=== PATIENT | female | born 1985 | race Two or more races ===

== ENCOUNTER 2019-11-08 18:23 | Emergency (ER) | payer SELFPAY | END 2019-11-08 18:50 | disposition home or self-care (01) | LOC: ERS 18:23 | DX: O99.89 Other specified diseases and conditions complicating pregnancy, childbirth and the puerperium (principal); M25.521 Pain in right elbow; Z3A.12 12 weeks gestation of pregnancy | CPT/HCPCS: 99283 ==

== ENCOUNTER 2020-05-18 22:04 | Day surgery (SDC) | payer OTHER ==
[2020-05-18 22:46] VITALS: BMI 40.6
[2020-05-18 23:17] LABS: Amnisure Test No Membranes Rupture (No Rupture)
[2020-05-18 23:19] LABS: Amnisure Internal Control QC ACCEPTABLE (ACCEPTABLE)
[2020-05-19] MEDS ORDERED: hydrALAZINE 20 MG/ML VIAL SLOW IVP PRN (00:14)
--- NOTE | 2020-05-19 01:05 | HP ---
PRIMARY MEDIA PRODUCTION SUPPORT MANAGER: Dr. Nieves. CHIEF COMPLAINT: Leakage of fluid. HISTORY OF PRESENT ILLNESS: The patient is a 34-year-old, G4, P3, female with an intrauterine at 40 weeks, presenting with an isolated event of leakage of fluid onto her underwear that she reports made a spot of moisture. The patient denies any persistent leaking. Denies any other change in discharge or vaginal bleeding. Denies urinary urgency or frequency. She denies fever, cough, headache, chest pain, shortness of breath, nausea, vomiting, diarrhea, constipation, hip problems, knee problems, or muscle weakness. She denies any new rashes. PAST MEDICAL HISTORY: Migraines. PAST SURGICAL HISTORY: She has had a cholecystectomy, angiogram, and a prior . ALLERGIES: NO KNOWN DRUG ALLERGIES. MEDICATIONS: vitamins. SOCIAL HISTORY: Denies drug, alcohol, or tobacco use. REVIEW OF SYSTEMS: Per HPI. PHYSICAL EXAMINATION: VITAL SIGNS: Blood pressure 109/63, heart rate of 82, respiratory rate of 16. GENERAL: She appears to be in no acute distress. She is alert, oriented, cooperative, and pleasant to interact with. HEAD: Normocephalic, atraumatic. LUNGS: Clear to auscultation bilaterally. HEART: Has a regular rate and rhythm. ABDOMEN: Gravid and soft. : Deferred. heart tracing shows the fetus with a baseline in the 120s with moderate long-term variability, positive 15 x 15 accelerations, no decelerations. Tocometer showing some isolated contractions. LABORATORY STUDIES: AmniSure test is negative. ASSESSMENT AND PLAN: The patient is a 34-year-old multiparous female with an intrauterine at 40 weeks, presenting with some isolated staining of her undergarments. The patient has declined exam for speculum exam to look for AmniSure is negative. Fetus has a category 1 tracing. The patient has been given reassurance for discharge home. She has an appointment on to follow up with Dr. Nieves that we have encouraged to keep. Job ID: [id number]
[2020-05-19] MEDS ORDERED: FLU VACC QS2020-21(6MOS UP)/PF 60 MCG/0.5 ML SYRINGE IM ONE (09:00)
== END 2020-05-19 00:09 | disposition home health service (06) ==
LOC: L&D/OP 22:04
PROVIDERS: ATTEND Obstetrics & Gynecology
DX: O99.891 Other specified diseases and conditions complicating pregnancy (principal); N89.8 Other specified noninflammatory disorders of vagina; O48.0 Post-term pregnancy; Z3A.40 40 weeks gestation of pregnancy
CPT/HCPCS: 84112; 99283

== ENCOUNTER 2020-05-23 09:43 | Inpatient (IN) | payer OTHER ==
[~2020-05-23 09:43] MED LIST: Bupivacaine HCl 0.25%/Epi 0.0005/PF 10 ML VIAL FS ONE
[2020-05-23 10:04] VITALS: BMI 39.1
[2020-05-23] MEDS ORDERED: hydrALAZINE 20 MG/ML VIAL SLOW IVP PRN ×3 (10:40→22:02)
--- NOTE | 2020-05-23 10:45 | PDOC.FPROB ---
FMR OB H&P: HPI - History of Present Illness Chief Complaint: ctx Indentification: 34yo @ 40.5 presents for ctx History of Present Illness: 34yo @ 40.5 presents for ctx. Patient has had previous c/s for Failure to progress with first , 2 successful VBACs. Ctx started approx 0600, have spaced out from q2min to about q4 min. Moderate intensity. uncomplicated thus far. Patient denies LOF, VB, VD. Endorses good movement. Denies fever/chills, n/v, ROLDAN, vision changes, edema, or RUQ pain. Primary Care Physician: Ezequiel FMR OB H&P: Current - Care : 4 Para: [id number] Gestational age: 40.5 Due date: 05/18/20 - OB Labs Blood type: A RH: positive Antibody Screen: negative HIV: negative RPR: negative HepBsAg: negative Rubella: immune Gonorrhea: negative Chlamydia: negative 1 hour gtt: 135 GBS: negative H&H: 12.0 FMR OB H&P: History - Past Medical History PMH: Denies - OB History OB History: pLTCS with first for failure to progress, no complications x2, most recent with shoulder dystocia Denies GDM or gHTN in any - [employer] History [employer] History: Denies - Surgical History Sx History: c/s x1 [place] - Social History Social History: Denies tob, illicits, etOH - Family History Family History: Denies FMR OB H&P: Medications - Current Home Medications: Medication Instructions Recorded Confirmed Type Pnv No.95/Ferrous Fum/Folic AC 1 tab PO DAILY 05/18/20 05/23/20 History [ Tablet] Allergies/Adverse Reactions: Allergies Allergy/AdvReac Type Severity Reaction Status Date / Time No Known Allergies Allergy Verified 05/23/20 09:56 FMR OB H&P: ROS - Review of Systems General: denies: fever/chills, weight/appetite/sleep changes, night sweats Eyes: denies: vision changes, double vision, scotomas ENT: denies: nasal congestion, rhinorrhea, trouble with swallowing Cardiovascular: denies: palpitation Respiratory: denies: cough, congestion, shortness of breath Gastrointestinal: denies: abdominal pain, nausea, vomiting, diarrhea, constipation Genitourinary (Female): reports: contractions. denies: dysuria, vaginal discharge, vaginal bleeding Musculoskeletal: denies: pain, stiffness Neurologic: denies: numbness Integumentary: denies: rash Psychological: denies: depression, anxiety FMR OB H&P: Vital Signs - Maternal Vital signs: Vital Signs - First Documented Temp Pulse Resp BP 98.6 F 90 18 112/61 05/23/20 09:55 05/23/20 09:55 05/23/20 09:55 05/23/20 09:55 - Heart Tones Baseline: 140 Variability: moderate Acceleration: present Deceleration: variable (intermittent) Category: category 2 [place] contractions every: 4-5min FMR OB H&P: Physical Exam - Physical Exam General: NAD, awake, alert and oriented HEENT: PERRLA, EOMI, MMM, conjunctiva clear Neck: supple, trachea midline Heart: RRR, normal S1/S2, no murmurs/rubs/gallops, no edema General: CTAB, no respiratory distress, good air movement, no rales/rhonchi, no wheezing Abdomen: soft, gravid, non-tender, bowel sound present Musculoskeletal: FROM in all four extremities Neurological: no focal deficit Psychiatric: intact recent and remote memory, good judgement and insight, normal mood and affect - Pelvic Exam SVE: 1.5/50/-3 FMR OB H&P: A/P - Problem List (1) Term Current Visit: Yes Status: Acute Code(s): Z34.90 - ENCNTR FOR SUPRVSN OF NORMAL , UNSP, UNSP TRIMESTER Disposition: 34yo @ 40.5 presents for ctx. #Labor r/o - Term, SIUP, 40.5 - previous c/s in first for failure to progress, 2 successful VBACs since, most recent with should dystocia - SVE 1.5/50/-3 - similar to check in clinic this week - Ctx started 0600, have spaced out per patient - Cat 2 FHT - Accels, intermittent variables, moderate variability - Will monitor for 2 hours, oral hydration, recheck SVE - Sono for KEVIN - patient would prefer to spontaneously go into labor and not be induced if possible. Has post-dates induction on 05/31 PCP: Ezequiel Dispo: Sono for KEVIN. Monitor FHT. Recheck SVE in 2 hours to determine if in labor or indication for induction. Discussion: Date/Time: 05/23/20 1041 This H&P was discussed with Dr. Massey who agrees with the above documentation and plan. Addendum - Attending - Attending Attestation Date/Time: 05/23/20 1226 I personally evaluated the patient and discussed the management with Dr. Wiley. I agree with the History, Examination, Assessment and Plan documented above. Dr. Nieves unavailable, will be managed by [facility].
[2020-05-23] MEDS ORDERED: Diphenoxylate HCl/Atropine Tablet PO PRN ×2 (11:21)
[2020-05-23] MEDS ORDERED: Carboprost 250 MCG/ML AMP IM PRN (11:21)
[2020-05-23] MEDS ORDERED: Butorphanol Tartrate 1 MG/ML VIAL SLOW IVP PRN (11:21)
[2020-05-23] MEDS ORDERED: Ibuprofen 800 MG TAB PO PRN (11:21)
[2020-05-23] MEDS ORDERED: Ondansetron PF 4 MG/2 ML Vial IVP PRN ×2 (11:21→22:02)
[2020-05-23] MEDS ORDERED: Acetaminophen 500 MG TAB PO PRN (11:21)
[2020-05-23] MEDS ORDERED: Methylergonovine 0.2 MG/ML VIAL IM PRN ×2 (11:21→22:02)
[2020-05-23] MEDS ORDERED: Misoprostol 200 MCG TAB PR PRN (11:21)
[2020-05-23] MEDS ORDERED: Lidocaine 1% (PF) 30 ML VIAL SC PRN (11:21)
[2020-05-23] MEDS ORDERED: Promethazine HCl 25 MG/ML VIAL IM PRN ×2 (11:21→22:02)
--- NOTE | 2020-05-23 11:25 | PDOC.BPN ---
- Brief Progress Note Encounter Date: 05/23/20 Encounter Time: 11:23 US - KEVIN 2.2 FHT with resolution of decels. Ctx q2-3min. A/P: 34yo @ 40.5 presents for ctx. #Oligo in setting of term - Term, SIUP, 40.5 - previous c/s in first for failure to progress, 2 successful VBACs since, most recent with should dystocia - SVE 1.5/50/-3 at admission- similar to check in clinic this week - Ctx started 0600 - Cat 1 FHT - Accels, intermittent variables resolved, moderate variability. Ctx q2-3min - Oligo - KEVIN 2.2 PCP: Ezequiel Dispo: Oligo. Will admit for labor management and induction. Patient voiced understanding and agreement. PCP notified.
[2020-05-23] MEDS ORDERED: Lactated Ringer's 1,000 ML IV SCH (11:30)
[2020-05-23] MEDS ORDERED: NS w/ Oxytocin 30 units 500 ML IVPB PRN (12:19)
--- NOTE | 2020-05-23 13:31 | PDOC.LDPN ---
Labor & Delivery Progress Note - Subjective Subjective: comfortable, painful contractions, no concerns - Objective Vital signs reviewed and normal: yes General: NAD, resting, breathing through contractions Uterine fundus: non tender SVE: /-2 FHT: category 1, variability present [place] contractions every: q2-3min - Assessment (1) Term Code(s): Z34.90 - ENCNTR FOR SUPRVSN OF NORMAL , UNSP, UNSP TRIMESTER Current Visit: Yes Status: Acute Plan: continue plan of care -: 34yo @ 40.5 presents for ctx admitted for oligo and labor #Oligo in setting of term - Term, SIUP, 40.5wk - previous c/s in first for failure to progress, 2 successful VBACs since, most recent with should dystocia per patient - Oligo - KEVIN 2.2 @ admission - SVE 1.5/50/-3 at admission - SVE /-2 @ 1330 - Cat 1 FHT - Accels, moderate variability. Ctx q2-3min - Patient would prefer minimal interventions if possible - GBS negative - Desires epidural PCP: Ezequiel Dispo: Continue expectant management. Desires epidural. Monitor FHT. Offered AROM and patient declined at this time. Will recheck in 4 hours. Regular contractions.
--- NOTE | 2020-05-23 13:32 | ULT ---
LIMITED OBSTETRICAL ULTRASOUND: Date: 05/23/2020 INDICATION: History is to evaluate KEVIN with variable decels of heart tones. FINDINGS: There is a single, live intrauterine gestation in vertex presentation. Placenta is anterior in locati on. Cardiac activity is noted at 126 beats/minute. KEVIN is 2.0. Clinical age is 40 weeks and 5 days. E stimated due date is 05/18/2020. IMPRESSION: 1. Single, live, intrauterine gestation. 2. Oligohydramnios. POS: BH
[2020-05-23 13:40] LABS: Hemoglobin 12.5 g/dL (12.0-16.0); Mean Corpuscular HGB CONC 33.1 g/dL (32.0-36.0); Mean Corpuscular Hemoglobin 28.5 pg (27.0-31.0); Mean Corpuscular Volume 86.3 fL (78.0-98.0); Mean Platelet Volume 9.5 fL (7.4-10.4); Platelet Count 198 thou/uL (130-400); Red Blood Cell (RBC) Count 4.37 mill/uL (4.20-5.40); White Blood Cell (WBC) Count 9.7 thou/uL (4.8-10.8)
[2020-05-23 14:19] LABS: HBSAg Index 0.15 S/CO (0-0.99); Hep B Surf Ag Non-Reactive S/CO (NonReactive)
[2020-05-23 14:46] LABS: Syphilis Antibody Nonreactive (Nonreactive); Syphilis Antibody Index 0.05 S/CO (<1.00 Non-Reactive)
[2020-05-23] MEDS ORDERED: Fentanyl 4 mcg/Bup 0.1% Cadd 100 ML ONE (15:28)
--- NOTE | 2020-05-23 18:35 | PDOC.LDPN ---
Labor & Delivery Progress Note - Subjective Subjective: comfortable, painful contractions, no concerns - Objective Vital signs reviewed and normal: yes General: NAD, resting, breathing through contractions SVE: 6100/0 FHT: category 1, variability present [place] contractions every: 3min AROM: meconium stained fluid - Assessment (1) Term Code(s): Z34.90 - ENCNTR FOR SUPRVSN OF NORMAL , UNSP, UNSP TRIMESTER Current Visit: Yes Status: Acute Plan: continue plan of care -: 34yo @ 40.5 presents for ctx admitted for oligo and labor #Oligo in setting of term - Term, SIUP, 40.5wk - previous c/s in first for failure to progress, 2 successful VBACs since, most recent with should dystocia per patient - [place]lig[place] - KEVIN 2.2 @ admission - SVE 1.5/50/-3 at admission - SVE 390/-2 @ 1330 - SVE 6/10/0 @ 1800 - AROM - mec stained - Cat 1 FHT - Accels, moderate variability. Ctx q2-3min - Patient would prefer minimal interventions if possible - GBS negative - Epidural placed PCP: Ezequiel Dispo: Continue expectant management. Monitor FHT. AROM with mec. Patient declined pit at this time. Will recheck in 2 hours. Regular contractions.
[2020-05-23] MEDS ORDERED: Bisacodyl 10 MG SUPP PR PRN (22:02)
[2020-05-23] MEDS ORDERED: HYDROcodone/Acetaminophen 5/325 mg Tablet PO PRN ×2 (22:02)
[2020-05-23] MEDS ORDERED: Milk Of Magnesia 30 ML UDCUP PO PRN (22:02)
[2020-05-23] MEDS ORDERED: Preparation H Ointment 28 GM TUBE PR PRN (22:02)
[2020-05-23] MEDS ORDERED: Benzocaine-Menthol 82.5 ML CAN TOP PRN (22:02)
[2020-05-23] MEDS ORDERED: Misoprostol 200 MCG TAB VAG PRN (22:02)
[2020-05-23] MEDS ORDERED: Lanolin Ointment 7 GM TUBE TOP PRN (22:02)
[2020-05-23] MEDS ORDERED: diphenhydrAMINE 25 MG CAP PO PRN (22:02)
--- NOTE | 2020-05-23 22:06 | PDOC.OPDEL ---
OB Operative/Delivery Note Delivery Dr/Surgeon: Bryson Pre-Delivery Diagnosis: active labor Procedure/Post Delivery Dx: vaginal delivery after CS Weeks gestation: 40 Anesthesia: epidural - Findings A Sex: female - 1 min: 8 - 5 min: 9 - Additional Findings/Plan Placenta delivered: spontaneous Repaired Obstetrical Laceration: 2nd degree (small) Compilations/Other Findings: Vigorous female delivered without complication. Small second degree laceration repaired with 2-0 chromic. Post delivery plan: routine recovery
[2020-05-23] MEDS ORDERED: NS / Oxytocin 40 units/1000ml 1,000 ML IV SCH (22:15)
[2020-05-24 01:17] LABS: SARS-CoV-2 PCR by NAA Not Detected (NotDetected)
[2020-05-24] MEDS ORDERED: Ibuprofen 800 MG TAB PO SCH (06:00)
[2020-05-24] MEDS: Ferrous Sulfate 325 MG TAB PO SCH (06:56)
--- NOTE | 2020-05-24 07:33 | PDOC.PP ---
Post Progress Note Post Day #: 1 Subjective: Doing well this morning, no complaints. PO intake tolerated: yes Ambulation: yes Vital Signs (12 hours) Temp Pulse Resp BP Pulse Ox 05/24/20 05:30 98.3 F 80 18 106/60 05/24/20 02:20 98.3 F 85 18 110/56 L 05/24/20 01:58 99 05/24/20 01:33 98.1 F 88 18 99/57 L 99 Weight Weight 214 lb - Physical Examination General: NAD Respiratory: non-labored breathing Abdominal: lochia (normal), no distention, appropriately TTP Fundus firm & at: below umbilicus Neurological: no gross focal deficits Psychiatric: A&Ox3, normal affect Result Diagrams: 05/23/20 12:36 Additional Labs: Post Labs Hep Bs Antigen Non-Reactive S/CO (NonReactive) 05/23/20 12:36 Blood Type A POSITIVE 05/23/20 14:06 (1) Term Code(s): Z34.90 - ENCNTR FOR SUPRVSN OF NORMAL , UNSP, UNSP TRIMESTER Status: Acute (2) (vaginal after ) Code(s): O34.219 - MATERNAL CARE FOR UNSP TYPE SCAR FROM PREVIOUS DEL Status: Acute (3) Previous delivery affecting Code(s): O34.219 - MATERNAL CARE FOR UNSP TYPE SCAR FROM PREVIOUS DEL Status: Acute - Assessment/Plan Doing well. Continue routine PPD1 care. Transfer to hospital today with anticipated d/c tomorrow.
[2020-05-24 08:08] VITALS: BP 90/50; TEMP 98
[2020-05-24] MEDS ORDERED: Measles/Mumps/Rubella 10 MCG/0.5 ML VIAL SC ONE (09:00)
[2020-05-24] MEDS ORDERED: Prenatal Vitamin 1 TAB PO SCH (09:00)
[2020-05-24] MEDS ORDERED: Docusate Calcium (SURFAK) 240 MG CAP PO SCH (09:00)
[2020-05-24] MEDS ORDERED: Adacel (T-DAP) 0.5 ML SYRINGE IM ONE (09:00)
[2020-05-24] MEDS ORDERED: FLU VACC QS2020-21(6MOS UP)/PF 60 MCG/0.5 ML SYRINGE IM ONE (09:00)
[2020-05-24] MEDS ORDERED: Varicella virus, LIVE 0.5 ML VIAL SC ONE (09:00)
== END 2020-05-24 10:13 | disposition short-term general hospital (02) | DRG 806 ==
LOC: L&D/OP 09:43 → L&D 21:59 → 3SW 05-24 00:55
PROVIDERS: ADMIT Obstetrics & Gynecology; ATTEND Obstetrics & Gynecology
PROC: 10E0XZZ Delivery of Products of Conception, External Approach (ICD-10-PCS; principal; 2020-05-23)
PROC: 0KQM0ZZ Repair Perineum Muscle, Open Approach (ICD-10-PCS; 2020-05-23)
PROC: 10907ZC Drainage of Amniotic Fluid, Therapeutic from Products of Conception, Via Natural or Artificial Opening (ICD-10-PCS; 2020-05-23)
DX: O34.219 Maternal care for unspecified type scar from previous cesarean delivery (principal); O41.03X0 Oligohydramnios, third trimester, not applicable or unspecified; Z37.0 Single live birth; O48.0 Post-term pregnancy; Z3A.40 40 weeks gestation of pregnancy; Z20.822 Contact with and (suspected) exposure to COVID-19; O76 Abnormality in fetal heart rate and rhythm complicating labor and delivery; O70.1 Second degree perineal laceration during delivery
CPT/HCPCS: 36415; 51702; 76815; 85027; 86780; 86850; 86900; 86901; 87340; 87635; 99285; J2001; J2590; U0003; U0005

== ENCOUNTER 2020-06-25 19:40 | Emergency (ER) | payer OTHER | END 2020-06-25 21:48 | disposition left against medical advice (07) | LOC: ERS 19:40 | DX: Z53.21 Procedure and treatment not carried out due to patient leaving prior to being seen by health care provider (principal) ==

== ENCOUNTER 2021-04-30 21:09 | Emergency (ER) | payer OTHER | END 2021-04-30 23:15 | disposition home or self-care (01) | LOC: ERS 21:09 | DX: S09.90XA Unspecified injury of head, initial encounter (principal); W20.8XXA Other cause of strike by thrown, projected or falling object, initial encounter | CPT/HCPCS: 70450 ==

== ENCOUNTER 2022-01-02 18:03 | Emergency (ER) | payer OTHER | END 2022-01-02 22:08 | disposition left against medical advice (07) | LOC: ERS 18:03 | DX: M54.50 Low back pain, unspecified (principal); Z53.29 Procedure and treatment not carried out because of patient's decision for other reasons ==